=== PATIENT | female | born 1980 | race African-American/Black ===

== ENCOUNTER 2019-03-28 13:25 | Emergency (ER) | payer SELFPAY ==
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
[2019-03-28 14:47] LABS: CHLORIDE,CL 106 mmol/L (98-107); SODIUM,NA 141 mmol/L (136-145)
--- NOTE | 2019-03-28 15:01 | US ---
INDICATION: . Abdominal injury. FINDINGS: A transabdominal pelvic ultrasound was performed. Patient refused endovaginal exam. Two uterine fibroids with the largest located in the right side of the fundus uterus 6.2 x 5.4 x 5.4 cm. Normal thickness of the endometrial stripe measuring 1.0 cm. No fluid collections in the uterine cavity. Normal appearance of the ovaries with the right ovary measuring 2.3 x 2.3 x 1.4 cm and the left ovary measuring 3.0 x 2.4 x 2.4 cm. Color and spectral Doppler analysis shows normal arterial and venous blood flow to both ovaries. Impression : 1. No intra or extrauterine identified. An ectopic cannot be excluded based on this study. Recommend continued close interval sonographic and laboratory follow-up. Dictated by Abner Zheng MD @ Mar 28 2019 2:47PM Signed by Dr. Abner Zheng @ Mar 28 2019 3:00PM
== END 2019-03-28 15:05 | disposition home or self-care (01) ==
LOC: MW.ED 13:25
DX: S39.91XA Unspecified injury of abdomen, initial encounter (principal); W51.XXXA Accidental striking against or bumped into by another person, initial encounter
CPT/HCPCS: 36415; 76801; 76801-26; 80053; 84702; 85025; 86900; 86901; 99283; 99284-25

== ENCOUNTER 2019-10-15 14:53 | Observation (INO) | payer OTHER ==
--- NOTE | 2019-10-15 15:26 | EDM.PDOC ---
ED HPI GENERAL MEDICAL PROBLEM - General Chief Complaint: Back Pain or Injury Stated Complaint: LOWER ABDOMINAL AND BACK PAIN Time Seen by Provider: 10/15/19 15:25 Source of Information: Reports: Patient History Limitations: Reports: No Limitations - History of Present Illness INITIAL COMMENTS - FREE TEXT/NARRATIVE: Patient is a 38-year-old female is complaining of having left lower quadrant pain which started approximately 3 days ago and got much more severe. Patient states pain is worse with movement but not changed with eating. Patient is feeling nauseous but has had no vomiting. She denies any dysuria or hematuria. Patient has no history of endometriosis or ovarian cyst. She does have a history of uterine fibroids. She denies any bloody or tarry looking stools. Last menstrual period was normal and she has had no vaginal discharge. Patient has had her gallbladder out. Duration: Day(s): (three), Getting Worse Location: Reports: Abdomen, Pelvis Quality: Reports: Ache, Sharp Severity: Severe Improves with: Reports: None Worsens with: Reports: Movement Associated Symptoms: Reports: No Other Symptoms Left Lower Back Pain Score (Numeric/FACES): 7 - Related Data Allergies Allergy/AdvReac Type Severity Reaction Status Date / Time No Known Allergies Allergy Verified 10/15/19 15:10 Home Meds: Home Meds . 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 ED EXAM,LOWER BACK PAIN/INJURY - Physical Exam Exam: See Below Exam Limited By: Language Barrier General Appearance: Moderate Distress Head: Atraumatic Neck: Normal Inspection Respiratory/Chest: No Respiratory Distress, Lungs Clear, Normal Breath Sounds, Chest Non-Tender Cardiovascular: Regular Rate, Rhythm, No JVD GI/Abdominal: Normal Bowel Sounds, Rebound, Tender. No: No Mass, Guarding, Rigid Back Exam: Normal Inspection. No: CVA Tenderness (L), CVA Tenderness (R) Extremities: Normal Inspection Neurological: Alert, Normal Mood/Affect Psychiatric: Normal Affect Skin Exam: Warm, Dry, Normal Color Lymphatic: No Adenopathy Course - Vital Signs Text/Narrative:: Patient's lab work was within normal limits. Her CT scan showed no acute inflammatory process in her abdomen or pelvis. She continues to have severe pelvic and right lower quadrant area pain I believe this is secondary to her having uterine fibroid disease. Pain seems intractable at this time. She is given several doses of narcotic pain medicine with only mild relief. I have discussed her with the hospitalist and she will be admitted at this time and I am expecting they will get a group captain involved for further evaluation and work-up. Possible ultrasound or MRI scan may be pending. Last Recorded V/S: Last Vital Signs Temp 36.2 C 10/15/19 15:07 Pulse 82 10/15/19 15:07 Resp 18 10/15/19 15:07 BP 108/72 10/15/19 15:07 Pulse Ox 99 10/15/19 15:07 - Orders/Labs/Meds Labs: Laboratory Tests 10/15/19 10/15/19 10/15/19 Range/Units 15:40 15:40 16:30 WBC 5.78 (4.0-11.0) K/uL RBC 4.62 (4.30-5.90) M/uL Hgb 12.8 (12.0-16.0) g/dL Hct 37.4 (36.0-46.0) % MCV 81.0 (80.0-98.0) fL MCH 27.7 (27.0-32.0) pg MCHC 34.2 (31.0-37.0) g/dL RDW Std Deviation 39.3 (28.0-62.0) fl RDW Coeff of Naresh 13 (11.0-15.0) % Plt Count 232 (150-400) K/uL MPV 10.60 (7.40-12.00) fL Neut % (Auto) 43.4 L (48.0-80.0) % Lymph % (Auto) 44.8 H (16.0-40.0) % [place] % (Auto) 9.7 (0.0-15.0) % Eos % (Auto) 1.4 (0.0-7.0) % Baso % (Auto) 0.7 (0.0-1.5) % Neut # (Auto) 2.5 (1.4-5.7) K/uL Lymph # (Auto) 2.6 H (0.6-2.4) K/uL [place] # (Auto) 0.6 (0.0-0.8) K/uL Eos # (Auto) 0.1 (0.0-0.7) K/uL Baso # (Auto) 0.0 (0.0-0.1) K/uL Nucleated RBC % 0.0 /100WBC Nucleated RBCs # 0 K/uL Lactate 0.9 (0.20-2.00) mmol/L Urine Color YELLOW Urine Appearance CLEAR Urine pH 7.5 (5.0-8.0) Ur Specific [place] 1.015 (1.001-1.035) Urine Protein NEGATIVE (NEGATIVE) mg/dL Urine Glucose (UA) NEGATIVE (NEGATIVE) mg/dL Urine Ketones NEGATIVE (NEGATIVE) mg/dL Urine Occult Blood NEGATIVE (NEGATIVE) Urine Nitrite NEGATIVE (NEGATIVE) Urine Bilirubin NEGATIVE (NEGATIVE) Urine Urobilinogen 0.2 (<2.0) EU/dL Ur Leukocyte Esterase SMALL H (NEGATIVE) Urine RBC 0-2 (0-2/HPF) Urine WBC 2-3 (0-5/HPF) Ur Epithelial Cells FEW (NONE-FEW) Amorphous Sediment FEW (NEGATIVE) Urine Bacteria FEW (NEGATIVE) Urine Mucus FEW (NONE-MOD) Urine HCG, Qual (NEGATIVE) 10/15/19 Range/Units 16:30 WBC (4.0-11.0) K/uL RBC (4.30-5.90) M/uL Hgb (12.0-16.0) g/dL Hct (36.0-46.0) % MCV (80.0-98.0) fL MCH (27.0-32.0) pg MCHC (31.0-37.0) g/dL RDW Std Deviation (28.0-62.0) fl RDW Coeff of Naresh (11.0-15.0) % Plt Count (150-400) K/uL MPV (7.40-12.00) fL Neut % (Auto) (48.0-80.0) % Lymph % (Auto) (16.0-40.0) % [place] % (Auto) (0.0-15.0) % Eos % (Auto) (0.0-7.0) % Baso % (Auto) (0.0-1.5) % Neut # (Auto) (1.4-5.7) K/uL Lymph # (Auto) (0.6-2.4) K/uL [place] # (Auto) (0.0-0.8) K/uL Eos # (Auto) (0.0-0.7) K/uL Baso # (Auto) (0.0-0.1) K/uL Nucleated RBC % /100WBC Nucleated RBCs # K/uL Lactate (0.20-2.00) mmol/L Urine Color Urine Appearance Urine pH (5.0-8.0) Ur Specific [place] (1.001-1.035) Urine Protein (NEGATIVE) mg/dL Urine Glucose (UA) (NEGATIVE) mg/dL Urine Ketones (NEGATIVE) mg/dL Urine Occult Blood (NEGATIVE) Urine Nitrite (NEGATIVE) Urine Bilirubin (NEGATIVE) Urine Urobilinogen (<2.0) EU/dL Ur Leukocyte Esterase (NEGATIVE) Urine RBC (0-2/HPF) Urine WBC (0-5/HPF) Ur Epithelial Cells (NONE-FEW) Amorphous Sediment (NEGATIVE) Urine Bacteria (NEGATIVE) Urine Mucus (NONE-MOD) Urine HCG, Qual NEGATIVE (NEGATIVE) Meds: Medications Discontinued Medications Generic Name Dose Route Start Last Admin Trade Name Freq PRN Reason Stop Dose Admin Sodium Chloride 1,000 mls @ 999 mls/hr 10/15/19 15:35 10/15/19 16:06 Normal Saline IV 10/15/19 16:35 999 mls/hr .BOLUS ONE Administration Ibuprofen 600 mg 10/15/19 18:16 10/15/19 18:53 Motrin PO 10/15/19 18:17 600 mg ONETIME ONE Administration Morphine Sulfate 2 mg 10/15/19 15:39 10/15/19 16:03 Morphine IVPUSH 10/15/19 15:40 2 mg ONETIME ONE Administration Ondansetron HCl 4 mg 10/15/19 15:37 10/15/19 16:03 Zofran IVPUSH 10/15/19 15:38 4 mg ONETIME ONE Administration Oxycodone/Acetaminophen 1 tab 10/15/19 18:16 10/15/19 18:53 Percocet 325-5 Mg PO 10/15/19 18:17 1 tab ONETIME ONE Administration Departure - Departure Time of Disposition: 19:11 Disposition: Refer to Observation Condition: Fair Clinical Impression: Pelvic pain, Intractable abdominal pain - Discharge Information Referrals: Dayami Acevedo MD [Primary Care Provider] - Forms: ED Department Discharge Sepsis Event Note - Evaluation Sepsis Screening Result: No Definite Risk - Focused Exam Vital Signs: Vital Signs Temp Pulse Resp BP Pulse Ox 10/15/19 15:07 36.2 C 82 18 108/72 99 Date Exam was Performed: 10/15/19 Time Exam was Performed: 19:02
[2019-10-15] MEDS ORDERED: Sodium Chloride 0.9% 1,000 ML IV ONE (15:35)
[2019-10-15] MEDS ORDERED: Ondansetron 4 MG/2 ML SDV IVPUSH ONE (15:37)
[2019-10-15] MEDS ORDERED: Morphine 2 MG/ML Syringe IVPUSH ONE (15:39)
--- NOTE | 2019-10-15 17:55 | CT ---
CT abdomen and pelvis Technique: Multiple axial sections were obtained from above the dome of the diaphragm inferiorly through the pubic symphysis. Intravenous and oral contrast not utilized. Lack of contrast diminishes solid organ and bowel evaluation. Findings: Unusual reticulonodular appearance is seen within the subcutaneous fat within both buttocks. Uncertain as to these the etiology of this finding. Other portions of the subcutaneous fat within the abdomen appears normal. Small calcified granuloma is seen within the right lung base. Noncontrast appearance of the liver shows no discrete abnormality. Spleen appears normal in size. Kidneys show no abnormal calcifications or hydronephrosis. Surgical clips are seen within the upper right abdomen. Adrenal glands show no nodule. Pancreas is within normal limits. Aorta shows no aneurysm. No retroperitoneal adenopathy is appreciated. Appendix cannot be visualized. Uterus is generous in size most likely representing fibroid change. No additional pelvic abnormality is definitely appreciated. No inflammatory change is appreciated within the abdomen or pelvis. Bone window settings were reviewed which shows no acute osseous finding. Impression: 1. Unusual reticulonodular appearance within the subcutaneous fat within both buttocks. These findings are nonspecific regarding etiology. Other portions of the subcutaneous fat within the abdomen appear normal. 2. Other findings which are felt to be incidental. Nothing acute is definitely appreciated on this exam. Diagnostic code #2 This report was dictated in [place] Standard Time
[2019-10-15] MEDS ORDERED: Acetaminophen/oxyCODONE 325-5 MG Tab PO ONE (18:16)
[2019-10-15] MEDS ORDERED: Ibuprofen 600 MG Tab PO ONE (18:16)
[2019-10-15] MEDS ORDERED: Ketorolac 30 MG/ML SDV IV PRN (20:02)
[2019-10-15] MEDS ORDERED: Ondansetron 4 MG/2 ML SDV IVPUSH PRN (20:02)
[2019-10-15] MEDS ORDERED: Morphine 10 MG/ML Syringe IVPUSH PRN (20:02)
[2019-10-15] MEDS ORDERED: Acetaminophen 325 MG Tab PO PRN (20:02)
[2019-10-15] MEDS ORDERED: Ondansetron 4 MG Tab.DIS PO PRN (20:02)
[2019-10-15] MEDS ORDERED: Enoxaparin 40 MG/0.4 ML Syringe SUBCUT SCH (20:15)
--- NOTE | 2019-10-15 22:21 | PCM.HP.2 ---
H&P History of Present Illness - General Date of Service: 10/15/19 Admit Problem/Dx: Admission Diagnosis/Problem Admission Diagnosis/Problem Abdominal pain in female Source of Information: Patient - History of Present Illness Initial Comments - Free Text/Narative: Patient is a 38-year-old female with PMH of uterine fibroids, cholecystectomy came in with c/o having left lower quadrant pain which started approximately 3 days ago and has gotten worse since yesterday .Patient also endorses nausea, She denies any dysuria or hematuria, bloody stools, diarrhea, or vagimal bleeding . Patient has no history of endometriosis or ovarian cyst. She does have a history of uterine fibroids and has seen her OBGYN in recent past. She is actively trying to get . She denies any bloody or tarry looking stools. Last menstrual period was normal and she has had no vaginal discharge. In the ER CT scan of abdomen was obtained which showed no acute findings. Lab work was unremarkable. Patient was admitted for intractable abdominal pain. Onset of Symptoms: Reports: Gradual Duration of Symptoms: Reports: Day(s): Quality: Reports: Ache, Pressure, Throbbing Improves with: Reports: Heat Therapy, Medication Associated Symptoms: Reports: Nausea/Vomiting Left Lower Back Pain Score (Numeric/FACES): 7 - Related Data Allergies/Adverse Reactions: Allergies Allergy/AdvReac Type Severity Reaction Status Date / Time No Known Allergies Allergy Verified 10/16/19 02:55 Home Medications: Home Meds Ibuprofen [Motrin] 600 mg PO Q6H PRN #30 tablet 10/16/19 [Rx] Omeprazole 20 mg PO DAILY 30 Days #30 tablet. 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: - Infectious Disease History Infectious Disease History: Reports: None Social & Family History - Family History Family Medical History: Noncontributory - Tobacco Use Smoking Status *Q: Never Smoker Second Hand Smoke Exposure: No - Caffeine Use Caffeine Use: Reports: None - Recreational Drug Use Recreational Drug Use: No H&P Review of Systems - Review of Systems: Review Of Systems: See Below General: Denies: Fever, Chills Pulmonary: Denies: Shortness of Breath, Wheezing Cardiovascular: Denies: Chest Pain, Palpitations, Dyspnea on Exertion Gastrointestinal: Reports: Abdominal Pain, Decreased Appetite, Nausea. Denies: Anorexia, Black Stool, Bloody Stool, Constipation, Diarrhea, Flatus, Hematemesis , Hematochezia, Mucous in Stool Genitourinary: Denies: Dysuria, Frequency, Burning Musculoskeletal: Denies: Neck Pain, Shoulder Pain, Arm Pain Skin: Denies: Cyanosis, Jaundice, Mottled, Pallor Psychiatric: Denies: Confusion, Depression, Mood Lability Exam - Exam Exam: See Below - Vital Signs Vital Signs: Last Vital Signs Temp 36.6 C 10/15/19 19:56 Pulse 76 10/15/19 19:56 Resp 18 10/15/19 19:56 BP 95/66 10/15/19 19:56 Pulse Ox 99 10/15/19 19:56 Weight: 77.111 kg - Exam General: Alert, Oriented Neck: Supple, Trachea Midline Lungs: Clear to Auscultation, Normal Respiratory Effort Cardiovascular: Regular Rate, Regular Rhythm, Normal S1, Normal S2 GI/Abdominal Exam: Normal Bowel Sounds, Soft, Tender - Patient Data Lab Results Last 24 hrs: Laboratory Results - last 24 hr 10/15/19 10/15/19 10/15/19 Range/Units 15:40 15:40 16:30 WBC 5.78 (4.0-11.0) K/uL RBC 4.62 (4.30-5.90) M/uL Hgb 12.8 (12.0-16.0) g/dL Hct 37.4 (36.0-46.0) % MCV 81.0 (80.0-98.0) fL MCH 27.7 (27.0-32.0) pg MCHC 34.2 (31.0-37.0) g/dL RDW Std Deviation 39.3 (28.0-62.0) fl RDW Coeff of Naresh 13 (11.0-15.0) % Plt Count 232 (150-400) K/uL MPV 10.60 (7.40-12.00) fL Neut % (Auto) 43.4 L (48.0-80.0) % Lymph % (Auto) 44.8 H (16.0-40.0) % [place] % (Auto) 9.7 (0.0-15.0) % Eos % (Auto) 1.4 (0.0-7.0) % Baso % (Auto) 0.7 (0.0-1.5) % Neut # (Auto) 2.5 (1.4-5.7) K/uL Lymph # (Auto) 2.6 H (0.6-2.4) K/uL [place] # (Auto) 0.6 (0.0-0.8) K/uL Eos # (Auto) 0.1 (0.0-0.7) K/uL Baso # (Auto) 0.0 (0.0-0.1) K/uL Nucleated RBC % 0.0 /100WBC Nucleated RBCs # 0 K/uL Lactate 0.9 (0.20-2.00) mmol/L Urine Color YELLOW Urine Appearance CLEAR Urine pH 7.5 (5.0-8.0) Ur Specific [place] 1.015 (1.001-1.035) Urine Protein NEGATIVE (NEGATIVE) mg/dL Urine Glucose (UA) NEGATIVE (NEGATIVE) mg/dL Urine Ketones NEGATIVE (NEGATIVE) mg/dL Urine Occult Blood NEGATIVE (NEGATIVE) Urine Nitrite NEGATIVE (NEGATIVE) Urine Bilirubin NEGATIVE (NEGATIVE) Urine Urobilinogen 0.2 (<2.0) EU/dL Ur Leukocyte Esterase SMALL H (NEGATIVE) Urine RBC 0-2 (0-2/HPF) Urine WBC 2-3 (0-5/HPF) Ur Epithelial Cells FEW (NONE-FEW) Amorphous Sediment FEW (NEGATIVE) Urine Bacteria FEW (NEGATIVE) Urine Mucus FEW (NONE-MOD) Urine HCG, Qual (NEGATIVE) 10/15/19 Range/Units 16:30 WBC (4.0-11.0) K/uL RBC (4.30-5.90) M/uL Hgb (12.0-16.0) g/dL Hct (36.0-46.0) % MCV (80.0-98.0) fL MCH (27.0-32.0) pg MCHC (31.0-37.0) g/dL RDW Std Deviation (28.0-62.0) fl RDW Coeff of Naresh (11.0-15.0) % Plt Count (150-400) K/uL MPV (7.40-12.00) fL Neut % (Auto) (48.0-80.0) % Lymph % (Auto) (16.0-40.0) % [place] % (Auto) (0.0-15.0) % Eos % (Auto) (0.0-7.0) % Baso % (Auto) (0.0-1.5) % Neut # (Auto) (1.4-5.7) K/uL Lymph # (Auto) (0.6-2.4) K/uL [place] # (Auto) (0.0-0.8) K/uL Eos # (Auto) (0.0-0.7) K/uL Baso # (Auto) (0.0-0.1) K/uL Nucleated RBC % /100WBC Nucleated RBCs # K/uL Lactate (0.20-2.00) mmol/L Urine Color Urine Appearance Urine pH (5.0-8.0) Ur Specific [place] (1.001-1.035) Urine Protein (NEGATIVE) mg/dL Urine Glucose (UA) (NEGATIVE) mg/dL Urine Ketones (NEGATIVE) mg/dL Urine Occult Blood (NEGATIVE) Urine Nitrite (NEGATIVE) Urine Bilirubin (NEGATIVE) Urine Urobilinogen (<2.0) EU/dL Ur Leukocyte Esterase (NEGATIVE) Urine RBC (0-2/HPF) Urine WBC (0-5/HPF) Ur Epithelial Cells (NONE-FEW) Amorphous Sediment (NEGATIVE) Urine Bacteria (NEGATIVE) Urine Mucus (NONE-MOD) Urine HCG, Qual NEGATIVE (NEGATIVE) Result Diagrams: 10/16/19 05:15 10/16/19 08:05 Sepsis Event Note - Evaluation Sepsis Screening Result: No Definite Risk - Focused Exam Vital Signs: Vital Signs Temp Pulse Resp BP Pulse Ox 10/15/19 19:56 36.6 C 76 18 95/66 99 10/15/19 15:07 36.2 C 82 18 108/72 99 Date Exam was Performed: 10/23/19 Time Exam was Performed: 12:31 - Problem List (1) Intractable abdominal pain SNOMED Code(s): 71970001 ICD Code: R10.9 - UNSPECIFIED ABDOMINAL PAIN Status: Acute Problem List Initiated/Reviewed/Updated: Yes Orders Last 24hrs: Active Orders 24 hr Category Date Time Status Admission Status [Patient Status] [ADT] Stat ADT 10/15/19 19:13 Active Intake and Output [RC] QSHIFT Care 10/15/19 20:02 Active Oxygen Therapy [RC] PRN Care 10/15/19 20:02 Active Up ad Yolanda [RC] ASDIRECTED Care 10/15/19 20:02 Active VTE/DVT Education [RC] PER UNIT ROUTINE Care 10/15/19 20:02 Active Vital Signs [RC] Q4H Care 10/15/19 20:02 Active Regular Diet [DIET] Diet 10/15/19 Dinner Active Acetaminophen [Tylenol] Med 10/15/19 20:02 Active 650 mg PO Q4H PRN Enoxaparin [Lovenox] Med 10/15/19 20:15 Active 40 mg SUBCUT Q24H Ibuprofen [Motrin] Med 10/15/19 20:02 Active 800 mg PO Q6H PRN Ketorolac [Toradol] Med 10/15/19 20:02 Active 30 mg IV Q6H PRN Morphine Med 10/15/19 20:02 Active 2 mg IVPUSH Q2H PRN Ondansetron [Zofran ODT] Med 10/15/19 20:02 Active 4 mg PO Q4H PRN Ondansetron [Zofran] Med 10/15/19 20:02 Active 4 mg IVPUSH Q4H PRN Resuscitation Status Routine Resus Stat 10/15/19 20:02 Ordered Medication Orders Acetaminophen (Tylenol) 650 mg PO Q4H PRN PRN Reason: Pain (Mild 1-3)/fever Enoxaparin Sodium (Lovenox) 40 mg SUBCUT Q24H SARA Last Admin: 10/15/19 21:13 Dose: 40 mg Ibuprofen (Motrin) 800 mg PO Q6H PRN PRN Reason: Pain (mild 1-3) Ketorolac Tromethamine (Toradol) 30 mg IV Q6H PRN PRN Reason: Pain (moderate 4-6) Morphine Sulfate (Morphine) 2 mg IVPUSH Q2H PRN PRN Reason: Pain (severe 7-10) Stop: 10/16/19 20:03 Ondansetron HCl (Zofran) 4 mg IVPUSH Q4H PRN PRN Reason: Nausea Ondansetron HCl (Zofran Odt) 4 mg PO Q4H PRN PRN Reason: nausea, able to take PO Assessment/Plan Comment:: 38 y/o admitted for abdominal pain CT scan unremarkable for any acute process Abdominal pain slight improved currently, Will continue pain control with morphine and Toradol IV Currently has no appetite, will start clear diet and advance as tolerated Cont IV fluids for now Will obtain USG uterus Will touch base will OBGYN venancio
[2019-10-16] MEDS: Ibuprofen 800 MG Tab PO PRN ×2 (02:42→12:50)
[2019-10-16 08:20] LABS: BLOOD UREA NITROGEN,BUN 7 mg/dL (7.0-18.0); CARBON DIOXIDE,CO2 24.9 mmol/L (21.0-32.0); CHLORIDE,CL 107 mmol/L (98-107); GLUCOSE RANDOM 81 mg/dL (74-106); POTASSIUM,K 3.4 mmol/L (3.5-5.1); SODIUM,NA 141 mmol/L (136-145)
--- NOTE | 2019-10-16 09:17 | PCM.DCSUM1 ---
<Tim Levine - Last Filed: 10/16/19 15:46> Discharge Summary - Hospital Course Free Text/Narrative:: 38 y/o female with history of fibroids presenting to ER complaining of worsening abdominal pain. Patient states that she finished her period about 1 week ago. Labs unremarkable. No leukocytosis, fevers. CT abdomen/pelvis was negative for any acute abdomen. It did show large fibroid but no other etiology for her pain. She was admitted for pain control. Patient's pain improved significantly overnight. She took Motrin and that seemed to alleviate the pain. She was discharged home on Motrin, omeprazole. Follow-up with her [employer] was schedule as outpatient. - Discharge Data Discharge Date: 10/16/19 Discharge Disposition: Home, Self-Care 01 Condition: Good - Referral to Home Health Primary Care Physician: PCP None - Patient Instructions Diet: Regular Diet as Tolerated Activity: As Tolerated Notify Provider of: Fever, Increased Pain, Swelling and Redness, Nausea and/or Vomiting - Discharge Plan Prescriptions/Med Rec: Ibuprofen [Motrin] 600 mg PO Q6H PRN #30 tablet PRN Reason: Pain (Mild 1-3) Omeprazole 20 mg PO DAILY 30 Days #30 tablet. Home Medications: Home Meds Ibuprofen [Motrin] 600 mg PO Q6H PRN #30 tablet 10/16/19 [Rx] Omeprazole 20 mg PO DAILY 30 Days #30 tablet. 10/16/19 [Rx] Patient Handouts: Omeprazole; Sodium Bicarbonate oral capsule, Pelvic Pain, Female, [id number], Ibuprofen tablets and capsules Referrals: Dayami Acevedo MD [Physician] - 11/04/19 3:30 pm - Discharge Summary/Plan Comment DC Time >30 min.: No - Patient Data Vitals - Most Recent: Last Vital Signs Temp 36.8 C 10/16/19 08:00 Pulse 64 10/16/19 08:00 Resp 16 10/16/19 08:00 BP 98/61 10/16/19 08:00 Pulse Ox 97 10/16/19 08:00 Weight - Most Recent: 77.111 kg I&O - Last 24 hours: Intake & Output 10/15/19 10/16/19 10/16/19 22:59 06:59 14:59 Intake Total 340 120 Balance 340 120 Lab Results - Last 24 hrs: Laboratory Results - last 24 hr 10/15/19 10/15/19 10/15/19 Range/Units 15:40 15:40 16:30 WBC 5.78 (4.0-11.0) K/uL RBC 4.62 (4.30-5.90) M/uL Hgb 12.8 (12.0-16.0) g/dL Hct 37.4 (36.0-46.0) % MCV 81.0 (80.0-98.0) fL MCH 27.7 (27.0-32.0) pg MCHC 34.2 (31.0-37.0) g/dL RDW Std Deviation 39.3 (28.0-62.0) fl RDW Coeff of Naresh 13 (11.0-15.0) % Plt Count 232 (150-400) K/uL MPV 10.60 (7.40-12.00) fL Neut % (Auto) 43.4 L (48.0-80.0) % Lymph % (Auto) 44.8 H (16.0-40.0) % [place] % (Auto) 9.7 (0.0-15.0) % Eos % (Auto) 1.4 (0.0-7.0) % Baso % (Auto) 0.7 (0.0-1.5) % Neut # (Auto) 2.5 (1.4-5.7) K/uL Lymph # (Auto) 2.6 H (0.6-2.4) K/uL [place] # (Auto) 0.6 (0.0-0.8) K/uL Eos # (Auto) 0.1 (0.0-0.7) K/uL Baso # (Auto) 0.0 (0.0-0.1) K/uL Nucleated RBC % 0.0 /100WBC Nucleated RBCs # 0 K/uL Lactate 0.9 (0.20-2.00) mmol/L Sodium (136-145) mmol/L Potassium (3.5-5.1) mmol/L Chloride (98-107) mmol/L Carbon Dioxide (21.0-32.0) mmol/L BUN (7.0-18.0) mg/dL Creatinine (0.6-1.0) mg/dL Est Cr Clr Drug Dosing mL/min Estimated GFR (MDRD) ml/min Glucose (74-106) mg/dL Calcium (8.5-10.1) mg/dL Total Bilirubin (0.2-1.0) mg/dL AST (15-37) IU/L ALT (14-63) IU/L Alkaline Phosphatase (46-116) U/L Total Protein (6.4-8.2) g/dL Albumin (3.4-5.0) g/dL Globulin (2.6-4.0) g/dL Albumin/Globulin Ratio (0.9-1.6) Urine Color YELLOW Urine Appearance CLEAR Urine pH 7.5 (5.0-8.0) Ur Specific [place] 1.015 (1.001-1.035) Urine Protein NEGATIVE (NEGATIVE) mg/dL Urine Glucose (UA) NEGATIVE (NEGATIVE) mg/dL Urine Ketones NEGATIVE (NEGATIVE) mg/dL Urine Occult Blood NEGATIVE (NEGATIVE) Urine Nitrite NEGATIVE (NEGATIVE) Urine Bilirubin NEGATIVE (NEGATIVE) Urine Urobilinogen 0.2 (<2.0) EU/dL Ur Leukocyte Esterase SMALL H (NEGATIVE) Urine RBC 0-2 (0-2/HPF) Urine WBC 2-3 (0-5/HPF) Ur Epithelial Cells FEW (NONE-FEW) Amorphous Sediment FEW (NEGATIVE) Urine Bacteria FEW (NEGATIVE) Urine Mucus FEW (NONE-MOD) Urine HCG, Qual (NEGATIVE) 10/15/19 10/16/19 10/16/19 Range/Units 16:30 05:15 08:05 WBC 5.18 (4.0-11.0) K/uL RBC 4.14 L (4.30-5.90) M/uL Hgb 11.2 L (12.0-16.0) g/dL Hct 33.5 L (36.0-46.0) % MCV 80.9 (80.0-98.0) fL MCH 27.1 (27.0-32.0) pg MCHC 33.4 (31.0-37.0) g/dL RDW Std Deviation 39.6 (28.0-62.0) fl RDW Coeff of Naresh 13 (11.0-15.0) % Plt Count 220 (150-400) K/uL MPV 10.80 (7.40-12.00) fL Neut % (Auto) 27.8 L (48.0-80.0) % Lymph % (Auto) 59.8 H (16.0-40.0) % [place] % (Auto) 9.7 (0.0-15.0) % Eos % (Auto) 1.5 (0.0-7.0) % Baso % (Auto) 1.2 (0.0-1.5) % Neut # (Auto) 1.4 (1.4-5.7) K/uL Lymph # (Auto) 3.1 H (0.6-2.4) K/uL [place] # (Auto) 0.5 (0.0-0.8) K/uL Eos # (Auto) 0.1 (0.0-0.7) K/uL Baso # (Auto) 0.1 (0.0-0.1) K/uL Nucleated RBC % 0.0 /100WBC Nucleated RBCs # 0 K/uL Lactate (0.20-2.00) mmol/L Sodium 141 (136-145) mmol/L Potassium 3.4 L (3.5-5.1) mmol/L Chloride 107 (98-107) mmol/L Carbon Dioxide 24.9 (21.0-32.0) mmol/L BUN 7 (7.0-18.0) mg/dL Creatinine 0.6 (0.6-1.0) mg/dL Est Cr Clr Drug Dosing 119.01 mL/min Estimated GFR (MDRD) > 60.0 ml/min Glucose 81 (74-106) mg/dL Calcium 8.6 (8.5-10.1) mg/dL Total Bilirubin 0.4 (0.2-1.0) mg/dL AST 22 (15-37) IU/L ALT 25 (14-63) IU/L Alkaline Phosphatase 54 (46-116) U/L Total Protein 6.0 L (6.4-8.2) g/dL Albumin 3.0 L (3.4-5.0) g/dL Globulin 3.0 (2.6-4.0) g/dL Albumin/Globulin Ratio 1.0 (0.9-1.6) Urine Color Urine Appearance Urine pH (5.0-8.0) Ur Specific [place] (1.001-1.035) Urine Protein (NEGATIVE) mg/dL Urine Glucose (UA) (NEGATIVE) mg/dL Urine Ketones (NEGATIVE) mg/dL Urine Occult Blood (NEGATIVE) Urine Nitrite (NEGATIVE) Urine Bilirubin (NEGATIVE) Urine Urobilinogen (<2.0) EU/dL Ur Leukocyte Esterase (NEGATIVE) Urine RBC (0-2/HPF) Urine WBC (0-5/HPF) Ur Epithelial Cells (NONE-FEW) Amorphous Sediment (NEGATIVE) Urine Bacteria (NEGATIVE) Urine Mucus (NONE-MOD) Urine HCG, Qual NEGATIVE (NEGATIVE) Med Orders - Current: Current Medications Acetaminophen (Tylenol) 650 mg PO Q4H PRN PRN Reason: Pain (Mild 1-3)/fever Enoxaparin Sodium (Lovenox) 40 mg SUBCUT Q24H SARA Last Admin: 10/15/19 21:13 Dose: 40 mg Ibuprofen (Motrin) 800 mg PO Q6H PRN PRN Reason: Pain (mild 1-3) Last Admin: 10/16/19 02:42 Dose: 800 mg Ketorolac Tromethamine (Toradol) 30 mg IV Q6H PRN PRN Reason: Pain (moderate 4-6) Morphine Sulfate (Morphine) 2 mg IVPUSH Q2H PRN PRN Reason: Pain (severe 7-10) Stop: 10/16/19 20:03 Ondansetron HCl (Zofran) 4 mg IVPUSH Q4H PRN PRN Reason: Nausea Ondansetron HCl (Zofran Odt) 4 mg PO Q4H PRN PRN Reason: nausea, able to take PO Discontinued Medications Sodium Chloride (Normal Saline) 1,000 mls @ 999 mls/hr IV .BOLUS ONE Stop: 10/15/19 16:35 Last Admin: 10/15/19 16:06 Dose: 999 mls/hr Ibuprofen (Motrin) 600 mg PO ONETIME ONE Stop: 10/15/19 18:17 Last Admin: 10/15/19 18:53 Dose: 600 mg Morphine Sulfate (Morphine) 2 mg IVPUSH ONETIME ONE Stop: 10/15/19 15:40 Last Admin: 10/15/19 16:03 Dose: 2 mg Ondansetron HCl (Zofran) 4 mg IVPUSH ONETIME ONE Stop: 02/13/20 15:38 Last Admin: 10/15/19 16:03 Dose: 4 mg Oxycodone/Acetaminophen (Percocet 325-5 Mg) 1 tab PO ONETIME ONE Stop: 10/15/19 18:17 Last Admin: 10/15/19 18:53 Dose: 1 tab <Alivia Brooks - Last Filed: 10/23/19 12:31> Discharge Summary - Hospital Course Free Text/Narrative:: I have seen and evaluated the patient and agree with the residents note unless specified in my note - Referral to Home Health Primary Care Physician: PCP None - Discharge Diagnosis/Problem(s) (1) Intractable abdominal pain SNOMED Code(s): 69216134 ICD Code: R10.9 - UNSPECIFIED ABDOMINAL PAIN Status: Acute - Patient Data Vitals - Most Recent: Last Vital Signs Temp 36.4 C 10/16/19 12:10 Pulse 75 10/16/19 12:10 Resp 18 10/16/19 12:10 BP 103/55 L 10/16/19 12:10 Pulse Ox 99 10/16/19 12:10 Med Orders - Current: Current Medications Discontinued Medications Acetaminophen (Tylenol) 650 mg PO Q4H PRN PRN Reason: Pain (Mild 1-3)/fever Enoxaparin Sodium (Lovenox) 40 mg SUBCUT Q24H SARA Last Admin: 10/15/19 21:13 Dose: 40 mg Sodium Chloride (Normal Saline) 1,000 mls @ 999 mls/hr IV .BOLUS ONE Stop: 10/15/19 16:35 Last Admin: 10/15/19 16:06 Dose: 999 mls/hr Ibuprofen (Motrin) 600 mg PO ONETIME ONE Stop: 10/15/19 18:17 Last Admin: 10/15/19 18:53 Dose: 600 mg Ibuprofen (Motrin) 800 mg PO Q6H PRN PRN Reason: Pain (mild 1-3) Last Admin: 10/16/19 12:50 Dose: 800 mg Ketorolac Tromethamine (Toradol) 30 mg IV Q6H PRN PRN Reason: Pain (moderate 4-6) Morphine Sulfate (Morphine) 2 mg IVPUSH ONETIME ONE Stop: 10/15/19 15:40 Last Admin: 10/15/19 16:03 Dose: 2 mg Morphine Sulfate (Morphine) 2 mg IVPUSH Q2H PRN PRN Reason: Pain (severe 7-10) Stop: 10/16/19 20:03 Ondansetron HCl (Zofran) 4 mg IVPUSH ONETIME ONE Stop: 10/15/19 15:38 Last Admin: 10/15/19 16:03 Dose: 4 mg Ondansetron HCl (Zofran) 4 mg IVPUSH Q4H PRN PRN Reason: Nausea Ondansetron HCl (Zofran Odt) 4 mg PO Q4H PRN PRN Reason: nausea, able to take PO Oxycodone/Acetaminophen (Percocet 325-5 Mg) 1 tab PO ONETIME ONE Stop: 10/15/19 18:17 Last Admin: 10/15/19 18:53 Dose: 1 tab Potassium Chloride (Klor-Con M20) 40 meq PO ONETIME ONE Stop: 10/16/19 09:19 Last Admin: 10/16/19 09:41 Dose: 40 meq
[2019-10-16] MEDS ORDERED: Potassium Chloride 20 MEQ Tab.ER PO ONE (09:18)
== END 2019-10-16 14:30 | disposition home or self-care (01) ==
LOC: MW.ED 14:53 → MW.MS 19:13
PROVIDERS: ADMIT Student in an Organized Health Care Education/Training Program; ATTEND Student in an Organized Health Care Education/Training Program
DX: R10.32 Left lower quadrant pain (principal); D25.9 Leiomyoma of uterus, unspecified; Z87.42 Personal history of other diseases of the female genital tract; Z90.49 Acquired absence of other specified parts of digestive tract; Z79.899 Other long term (current) drug therapy
CPT/HCPCS: 36415; 74176; 80053; 81001; 81025; 83605; 85025; 96361; 96372; 96374; 96375; 99285; A9270; G0378; J1650; J2270; J2405; J7030; 99284

== ENCOUNTER 2020-01-19 06:37 | Observation (INO) | payer OTHER ==
[2020-01-19] MEDS ORDERED: Midazolam 1 MG/ML 2 ML SDV ONE (06:53)
[2020-01-19] MEDS ORDERED: Propofol 200 MG/20 ML SDV ONE (06:53)
[2020-01-19] MEDS ORDERED: fentaNYL 250 MCG/5 ML SDV ONE (06:54)
[2020-01-19] MEDS ORDERED: Ondansetron 4 MG/2 ML SDV ONE (06:58)
[2020-01-19] MEDS ORDERED: Glycopyrrolate 0.2 MG/ML SDV ONE (06:58)
[2020-01-19] MEDS ORDERED: Ketorolac 30 MG/ML SDV ONE (06:58)
[2020-01-19] MEDS ORDERED: Lidocaine 2% 5 ML SDV ONE (06:58)
[2020-01-19] MEDS: Lactated Ringers 1,000 ML IV SCH ×3 (07:00→19:28)
[2020-01-19] MEDS ORDERED: Sugammadex Sodium 200 MG/2 ML VIAL ONE (07:00)
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
[2020-01-19 07:28] LABS: BLOOD UREA NITROGEN,BUN 10 mg/dL (7.0-18.0); CARBON DIOXIDE,CO2 24.8 mmol/L (21.0-32.0); CHLORIDE,CL 104 mmol/L (98-107); GLUCOSE RANDOM 88 mg/dL (74-106); POTASSIUM,K 3.7 mmol/L (3.5-5.1); SODIUM,NA 137 mmol/L (136-145)
[2020-01-19] MEDS ORDERED: Acetaminophen 1,000 MG in Premix Bag 1 BAG IV PRN (07:29)
[2020-01-19] MEDS ORDERED: Desflurane 240 ML Bottle ONE (07:38)
[2020-01-19] MEDS ORDERED: Sodium Chloride 0.9% 20 ML ONE (08:18)
[2020-01-19] MEDS ORDERED: ceFAZolin 1 GM Vial ONE (08:18)
[2020-01-19] MEDS ORDERED: Vasopressin 20 Units/1 ML MDV ONE (08:19)
[2020-01-19] MEDS ORDERED: Rocuronium 100 MG/10 ML Syringe ONE (08:35)
[2020-01-19] MEDS ORDERED: HYDROmorphone 2 MG/ML Syringe ONE ×2 (08:40→09:29)
[2020-01-19] MEDS ORDERED: Bupivacaine 0.5% 10 ML SDV ONE (10:37)
[2020-01-19] MEDS ORDERED: Acetaminophen/oxyCODONE 325-5 MG Tab PO PRN (10:56)
[2020-01-19] MEDS ORDERED: Promethazine 25 MG/ML SDV IM PRN (10:56)
[2020-01-19] MEDS ORDERED: Ondansetron 4 MG/2 ML SDV IVPUSH PRN (10:56)
[2020-01-19] MEDS ORDERED: Non-Formulary Medication 1 Each (Omeprazole [Omeprazole] 20 MG) PO PRN (11:01)
--- NOTE | 2020-01-19 11:06 | PCM.OPNOTE ---
- General Post-Op/Procedure Note Date of Surgery/Procedure: 01/19/20 Operative Procedure(s): Abdominal myomectomy Findings: Extensive adhesions of uterus to posterior cul-de-sac, multiple leiomyoma, right ovary and fallopian tube not identified Pre Op Diagnosis: Uterine leiomyoma. Dysmenorrhea. Pelvic, back, and abdominal pain. Heavy menstruation Post-Op Diagnosis: Uterine leiomyoma. Dysmenorrhea. Pelvic, back, and abdominal pain. Heavy menstruation. Pelvic adhesive disease Anesthesia Technique: General ET Tube Primary Surgeon: Dayami Acevedo [facility]: Navarro Guaman Pathology: Uterine leiomyoma x3 (4cm, 4cm, 6cm) Fluid Replacement, Intraop: 2,500 Output, Urine Amount: 200 EBL in mLs: 300 Complications: None Condition: Good Free Text/Narrative:: Tranexamic acid 1g IV preoperative bleeding prophylaxis Ancef 2g IV preooerative prophylaxis Vasopressin 20U in 100cc NS intraoperative Avitene intraoperative Catrachita intraoperative Interceed intraoperative 10cc 0.5% Bupivacaine infiltrated into incision at end of procedure
[2020-01-19] MEDS: fentaNYL 100 MCG/2 ML SDV IVPUSH PRN ×2 (11:25→11:32)
[2020-01-19] MEDS: Morphine 4 MG/ML Syringe IVPUSH PRN ×3 (11:39→21:14)
--- NOTE | 2020-01-19 11:54 | PCM.POSTAN ---
POST ANESTHESIA ASSESSMENT - MENTAL STATUS Mental Status: Alert - VITAL SIGNS Vital Signs: Last Vital Signs Temp 36.4 C 01/19/20 07:24 Pulse 100 01/19/20 11:45 Resp 12 01/19/20 11:45 BP 114/63 01/19/20 11:45 Pulse Ox 100 01/19/20 11:45 - RESPIRATORY Respiratory Status: Respiratory Rate WNL - CARDIOVASCULAR CV Status: Pulse Rate WNL - GASTROINTESTINAL GI Status: No Symptoms - POST OP HYDRATION Hydration Status: Adequate & Stable
[2020-01-19] MEDS: Ketorolac 30 MG/ML SDV IVPUSH SCH ×3 (12:17→23:13)
[2020-01-19] MEDS: Acetaminophen/oxyCODONE 325-5 MG Tab PO PRN ×2 (14:02→20:33)
[2020-01-19] MEDS: Docusate Sodium 100 MG Cap PO SCH (20:33)
--- NOTE | 2020-01-19 22:26 | OR ---
SURGEON: Dayami Acevedo MD DATE OF PROCEDURE: 01/19/2020 PREOPERATIVE DIAGNOSES: 1. 39-year-old with uterine leiomyoma. 2. Pelvic, abdominal, and back pain. 3. Dysmenorrhea. 4. Heavy menses. POSTOPERATIVE DIAGNOSES: 1. 39-year-old with uterine leiomyoma. 2. Pelvic, abdominal, and back pain. 3. Dysmenorrhea. 4. Heavy menses. 5. Extensive adhesive disease in pelvis. PROCEDURE: Abdominal myomectomy and lysis of adhesions. PRIMARY SURGEON: Dayami Acevedo MD. VICE PRESIDENT OF OPERATIONS: Dr. Navarro Guaman. ANESTHESIA: General endotracheal. IV FLUIDS: 2500 mL LR. ESTIMATED BLOOD LOSS: 200 mL. URINE OUTPUT: 200 mL. PREOPERATIVE ANTIBIOTICS: Ancef 2 g IV. BLEEDING PROPHYLAXIS: Tranexamic acid 1 g IV. FINDINGS: Extensive adhesive disease in the pelvis. Enlarged uterus with multiple fibroids. Did not visualize right ovary or fallopian tube. Normal-appearing left ovary with fallopian tube appearing to be adhesed posteriorly. SPECIMEN: Uterine leiomyoma. MEDICATIONS: Avitene, Catrachita, Interceed. 10 mL 0.5% bupivacaine. INDICATIONS: This is a 39-year-old patient, who presented for planned surgery for known uterine leiomyoma. The patient reported significant pelvic, back, and abdominal pain, which has worsened over the past 1 month. She also reports heavy menses and dysmenorrhea. Prior to surgery, all the risks, benefits, and alternatives were reviewed with the patient and she desired to proceed. DESCRIPTION OF PROCEDURE: The patient was taken to the operating room, where general anesthesia was obtained. She was placed in the dorsal lithotomy position with legs in Yellofin stirrups. She was prepared and draped in the normal sterile fashion. A Silveira catheter was placed. Pfannenstiel skin incision was made using the patient's previous scar and carried through to underlying layer of fascia with the Bovie. The fascia was incised in the midline and incision extended laterally with the Bovie. The superior aspect of fascial incision was grasped with Jj clamps, elevated, and underlying rectus muscles dissected off bluntly and with the curved Cerrato scissors. In a similar fashion, the inferior aspect of the fascial incision was grasped with Jj clamps, elevated, and underlying rectus muscles dissected off bluntly and with the Cerrato scissors. The muscles were in the midline using a hemostat for elevation in the Bovie. The peritoneum was, at this time, inadvertently entered. This incision was extended with a combination of manual traction and a layered approach with the Bovie, being careful not to harm bowel or bladder. A large Ronnie retractor was placed. An abdominal survey revealed the above findings. The uterus was adhesed posteriorly to the posterior cul-de-sac and bowel. These adhesions were lysed with a combination of blunt and sharp dissection. Multiple fibroids were noted. The largest fundal/posterior fibroid was grasped with a towel clamp and used to manipulate the uterus. Two 4 cm fibroids were identified on the left side of the uterus. These were infiltrated with vasopressin mixed in normal saline for bleeding control. The Bovie was used to incise the fibroid capsule and the fibroid was shelled out of the myometrium with a combination of blunt and sharp dissection with the Metzenbaum scissors. The bed of the 2 fibroids was closed with running stitch of 2-0 Vicryl suture until hemostasis was obtained. The serosa was closed with a baseball stitch of 2-0 Vicryl suture. At this time, more thorough survey of the uterus and adnexa was undertaken. The patient had previously had a laparotomy for possible endometriosis versus ovarian cyst, but was unsure. The right fallopian tube and ovary were not visualized. The left ovary was visualized and the left fallopian tube appeared to be adhesed posteriorly underneath the ovary; the fimbriated end was not identified. The larger 6 cm fibroid was infiltrated with dilute vasopressin for bleeding control similar to the other fibroids. The capsule was incised with the Bovie, and a combination of blunt and sharp dissection with Metzenbaum scissors was used to shell out the fibroid with complete removal. The myometrial defect was closed with running stitch of 2-0 Vicryl suture. The serosa was closed with a baseball stitch of 2-0 Vicryl suture. [id number] sutures were used to obtain hemostasis in all fibroid serosal bleeding. The left adnexa appeared to be bleeding. [id number] stitches were used here to obtain hemostasis. Avitene was placed in this area for hemostasis. Catrachita was placed throughout the pelvis due to serosal oozing. The pelvis was irrigated and no active arterial bleeding was noted. Next, an Interceed was placed over the uterus in attempt to decrease adhesive disease reformation. The Ronnie retractor was removed. The peritoneum was closed with a running suture of 3-0 Vicryl suture. The fascia was closed with 2 stitches of 0 Vicryl suture remaining in the midline. The skin was closed with 4-0 Monocryl in subcuticular fashion. 10 mL of 0.5% bupivacaine was infiltrated into the incision at this time. All sponge, lap, needle counts were correct x2. The patient was awakened and taken to recovery room in stable condition. [id number] / MODL /[id number] DIONICIO
[2020-01-20] MEDS: Acetaminophen/oxyCODONE 325-5 MG Tab PO PRN ×3 (00:42→15:16)
[2020-01-20] MEDS: Morphine 4 MG/ML Syringe IVPUSH PRN (02:21)
[2020-01-20] MEDS: Lactated Ringers 1,000 ML IV SCH (03:46)
[2020-01-20] MEDS: Ketorolac 30 MG/ML SDV IVPUSH SCH ×2 (05:07→11:46)
[2020-01-20 05:58] LABS: BLOOD UREA NITROGEN,BUN 7 mg/dL (7.0-18.0); CARBON DIOXIDE,CO2 26.7 mmol/L (21.0-32.0); CHLORIDE,CL 103 mmol/L (98-107); GLUCOSE RANDOM 108 mg/dL (74-106); POTASSIUM,K 3.6 mmol/L (3.5-5.1); SODIUM,NA 137 mmol/L (136-145)
--- NOTE | 2020-01-20 07:14 | PCM48HPAN ---
Post Anesthesia Note - EVALUATION WITHIN 48HRS OF ANESTHETIC Vital Signs in Normal Range: Yes Patient Participated in Evaluation: Yes Respiratory Function Stable: Yes Airway Patent: Yes Cardiovascular Function Stable: Yes Hydration Status Stable: Yes Pain Control Satisfactory: Yes Nausea and Vomiting Control Satisfactory: Yes Mental Status Recovered: Yes Vital Signs: Last Vital Signs Temp 98.2 F 01/20/20 04:00 Pulse 86 01/20/20 04:00 Resp 18 01/20/20 04:00 BP 93/51 L 01/20/20 04:00 Pulse Ox 99 01/20/20 04:00
[2020-01-20] MEDS: Docusate Sodium 100 MG Cap PO SCH (08:16)
--- NOTE | 2020-01-20 08:32 | PCM.PN ---
- General Info Date of Service: 01/20/20 Functional Status: Reports: Pain Controlled, Tolerating Diet, Ambulating, Urinating - Review of Systems General: Reports: No Symptoms HEENT: Reports: No Symptoms Pulmonary: Reports: No Symptoms Cardiovascular: Reports: No Symptoms Gastrointestinal: Reports: No Symptoms Genitourinary: Reports: No Symptoms Musculoskeletal: Reports: No Symptoms Skin: Reports: No Symptoms Neurological: Reports: No Symptoms Psychiatric: Reports: No Symptoms - Patient Data Vitals - Most Recent: Last Vital Signs Temp 36.6 C 01/20/20 08:23 Pulse 74 01/20/20 08:23 Resp 16 01/20/20 08:23 BP 99/54 L 01/20/20 08:23 Pulse Ox 100 01/20/20 08:23 Weight - Most Recent: 64.41 kg I&O - Last 24 Hours: Intake & Output 01/19/20 01/20/20 01/20/20 22:59 06:59 14:59 Intake Total 200 1939 Output Total 1000 1400 Balance -800 539 Lab Results Last 24 Hours: Laboratory Results - last 24 hr 01/20/20 01/20/20 Range/Units 04:42 04:42 WBC 6.97 (4.0-11.0) K/uL RBC 3.69 L (4.30-5.90) M/uL Hgb 9.9 L (12.0-16.0) g/dL Hct 30.4 L (36.0-46.0) % MCV 82.4 (80.0-98.0) fL MCH 26.8 L (27.0-32.0) pg MCHC 32.6 (31.0-37.0) g/dL RDW Std Deviation 39.1 (28.0-62.0) fl RDW Coeff of Naresh 13 (11.0-15.0) % Plt Count 222 (150-400) K/uL MPV 11.20 (7.40-12.00) fL Neut % (Auto) 71.2 (48.0-80.0) % Lymph % (Auto) 18.1 (16.0-40.0) % Haakon % (Auto) 9.6 (0.0-15.0) % Eos % (Auto) 1.0 (0.0-7.0) % Baso % (Auto) 0.1 (0.0-1.5) % Neut # (Auto) 5.0 (1.4-5.7) K/uL Lymph # (Auto) 1.3 (0.6-2.4) K/uL Haakon # (Auto) 0.7 (0.0-0.8) K/uL Eos # (Auto) 0.1 (0.0-0.7) K/uL Baso # (Auto) 0.0 (0.0-0.1) K/uL Nucleated RBC % 0.0 /100WBC Nucleated RBCs # 0 K/uL Sodium 137 (136-145) mmol/L Potassium 3.6 (3.5-5.1) mmol/L Chloride 103 (98-107) mmol/L Carbon Dioxide 26.7 (21.0-32.0) mmol/L BUN 7 (7.0-18.0) mg/dL Creatinine 0.8 (0.6-1.0) mg/dL Est Cr Clr Drug Dosing 88.38 mL/min Estimated GFR (MDRD) > 60.0 ml/min Glucose 108 H (74-106) mg/dL Calcium 8.6 (8.5-10.1) mg/dL Med Orders - Current: Current Medications Docusate Sodium (Colace) 100 mg PO BID [facility] Last Admin: 01/20/20 08:16 Dose: 100 mg Ibuprofen (Motrin) 800 mg PO Q8H PRN PRN Reason: Pain (mild 1-3) Ketorolac Tromethamine (Toradol) 30 mg IVPUSH Q6H [facility] Stop: 01/20/20 12:00 Last Admin: 01/20/20 05:07 Dose: 30 mg Morphine Sulfate (Morphine) 4 mg IVPUSH Q2H PRN PRN Reason: Pain (severe 7-10) Last Admin: 01/20/20 02:21 Dose: 4 mg Non-Formulary Medication (Omeprazole [Omeprazole]) 20 mg PO DAILY PRN PRN Reason: Heartburn Ondansetron HCl (Zofran) 4 mg IVPUSH Q6H PRN PRN Reason: Nausea/Vomiting Oxycodone/Acetaminophen (Percocet 325-5 Mg) 1 tab PO Q4H PRN PRN Reason: Pain (moderate 4-6) Oxycodone/Acetaminophen (Percocet 325-5 Mg) 2 tab PO Q4H PRN PRN Reason: Pain (moderate 4-6) Last Admin: 01/20/20 08:16 Dose: 2 tab Promethazine HCl (Phenergan) 25 mg IM Q6H PRN PRN Reason: Nausea/Vomiting Discontinued Medications Bupivacaine HCl (Sensorcaine-Mpf 0.5%) Confirm Administered Dose 10 ml .ROUTE .STK-MED ONE Stop: 01/19/20 10:38 Cefazolin Sodium (Ancef) Confirm Administered Dose 2 gm .ROUTE .STK-MED ONE Stop: 01/19/20 08:19 Desflurane (Suprane) Confirm Administered Dose 480 ml .ROUTE .STK-MED ONE Stop: 01/19/20 07:39 Fentanyl (Sublimaze) Confirm Administered Dose 250 mcg .ROUTE .STK-MED ONE Stop: 01/19/20 06:55 Fentanyl (Sublimaze) 50 mcg IVPUSH Q5M PRN PRN Reason: Pain Last Admin: 01/19/20 11:32 Dose: 50 mcg Glycopyrrolate (Robinul) Confirm Administered Dose 0.2 mg .ROUTE .STK-MED ONE Stop: 01/19/20 06:59 Hydromorphone HCl (Dilaudid) Confirm Administered Dose 2 mg .ROUTE .STK-MED ONE Stop: 01/19/20 08:41 Hydromorphone HCl (Dilaudid) Confirm Administered Dose 2 mg .ROUTE .STK-MED ONE Stop: 01/19/20 09:30 Lactated Ringer's (Ringers, Lactated) 1,000 mls @ 125 mls/hr IV ASDIRECTED SARA Last Admin: 01/20/20 03:46 Dose: 125 mls/hr Acetaminophen 1,000 mg/ Premix 100 mls @ 400 mls/hr IV ONETIME PRN PRN Reason: Pain Last Admin: 01/19/20 11:17 Dose: 400 mls/hr Sodium Chloride (Normal Saline) Confirm Administered Dose 20 mls @ as directed .ROUTE .STK-MED ONE Stop: 01/19/20 08:19 Acetaminophen (Ofirmev) Confirm Administered Dose 100 mls @ as directed .ROUTE .STK-MED ONE Stop: 01/19/20 11:15 Ketorolac Tromethamine (Toradol) Confirm Administered Dose 30 mg .ROUTE .STK- MED ONE Stop: 01/19/20 06:59 Lidocaine (Xylocaine-Mpf 2%) Confirm Administered Dose 5 ml .ROUTE .STK-MED ONE Stop: 01/19/20 06:59 Midazolam HCl (Versed 1 Mg/Ml) Confirm Administered Dose 2 mg .ROUTE .STK-MED ONE Stop: 01/19/20 06:54 Ondansetron HCl (Zofran) Confirm Administered Dose 4 mg .ROUTE .STK-MED ONE Stop: 01/19/20 06:59 Propofol (Diprivan 20 Ml) Confirm Administered Dose 200 mg .ROUTE .STK-MED ONE Stop: 01/19/20 06:54 Rocuronium [place] (Zemuron) Confirm Administered Dose 100 mg .ROUTE .STK-MED ONE Stop: 01/19/20 08:36 Sugammadex Sodium (Bridion) Confirm Administered Dose 200 mg .ROUTE .STK-MED ONE Stop: 01/19/20 07:01 Tranexamic Acid (Cyklokapron) Confirm Administered Dose 1,000 mg .ROUTE .STK- MED ONE Stop: 01/19/20 08:20 Vasopressin (Vasopressin) Confirm Administered Dose 20 units .ROUTE .STK-MED ONE Stop: 01/19/20 08:20 - Exam General: Alert, Oriented Neck: Supple Lungs: Normal Respiratory Effort GI/Abdominal Exam: Soft, No Distention, Tender (appropriate tenderness to palpation) Extremities: Non-Tender, No Pedal Edema Skin: Warm, Dry, Intact Wound/Incisions: Dressing Dry and Intact Neurological: No New Focal Deficit Psy/Mental Status: Alert, Normal Affect, Normal Mood Sepsis Event Note - Evaluation Sepsis Screening Result: No Definite Risk - Focused Exam Vital Signs: Vital Signs Temp Pulse Resp BP Pulse Ox 01/20/20 08:23 36.6 C 74 16 99/54 L 100 01/20/20 04:00 36.8 C 86 18 93/51 L 99 01/20/20 00:00 36.6 C 95 16 109/68 98 Date Exam was Performed: 01/20/20 Time Exam was Performed: 08:31 - Problem List & Annotations (1) Uterine leiomyoma SNOMED Code(s): 44641035 Code(s): D25.9 - LEIOMYOMA OF UTERUS, UNSPECIFIED Status: Acute Current Visit: Yes - Problem List Review Problem List Initiated/Reviewed/Updated: Yes - My Orders Last 24 Hours: My Active Orders 01/19/20 10:56 Patient Status [ADT] Routine Notify Provider Intake and Out [RC] ASDIRECTED Notify Provider Vital Signs [RC] ASDIRECTED Oxygen Therapy [RC] ASDIRECTED RT Incentive Spirometry [RC] Q2HWA Up With Assistance [RC] PER UNIT ROUTINE Up ad Yolanda [RC] PER UNIT ROUTINE Urinary Catheter Removal [RC] Per Unit Routine Vital Signs [RC] PER UNIT ROUTINE Acetaminophen/oxyCODONE [Percocet 325-5 MG] 1 tab PO Q4H PRN Acetaminophen/oxyCODONE [Percocet 325-5 MG] 2 tab PO Q4H PRN Morphine 4 mg IVPUSH Q2H PRN Ondansetron [Zofran] 4 mg IVPUSH Q6H PRN Promethazine [Phenergan] 25 mg IM Q6H PRN Peripheral IV Discontinue [OM.PC] Routine Sequential Compression Device [OM.PC] Per Unit Routine Resuscitation Status Routine 01/19/20 10:57 Antiembolic Devices [RC] PER UNIT ROUTINE Intake and Output [RC] PER UNIT ROUTINE 01/19/20 10:58 Pulse Oximetry [RC] PER UNIT ROUTINE Abdominal Binder [OM.PC] Per Unit Routine 01/19/20 11:00 Ketorolac [Toradol] 30 mg IVPUSH Q6H 01/19/20 11:01 Omeprazole [Omeprazole] 20 mg PO DAILY PRN 01/19/20 21:00 Docusate Sodium [Colace] 100 mg PO BID 01/19/20 Lunch Regular Diet [DIET] 01/20/20 08:30 Ready for Discharge [RC] PER UNIT ROUTINE 01/20/20 10:59 Ibuprofen [Motrin] 800 mg PO Q8H PRN - Assessment Assessment:: 39yo s/p abdominal myomectomy and lysis of adhesions, POD#1 - Plan Plan:: Discharge home today. Patient meeting all postoperative milestones. Reviewed discharge instructions.
[2020-01-20] MEDS ORDERED: Ibuprofen 800 MG Tab PO PRN (10:59)
== END 2020-01-20 16:00 | disposition home or self-care (01) ==
LOC: MW.SDS 06:37 → MW.MS 11:31
PROVIDERS: ADMIT Obstetrics & Gynecology; ATTEND Obstetrics & Gynecology
DX: D25.9 Leiomyoma of uterus, unspecified (principal); K21.9 Gastro-esophageal reflux disease without esophagitis; Z79.899 Other long term (current) drug therapy
CPT/HCPCS: 36415; 58140; 80048; 84703; 85025; 86850; 86900; 86901; 88307; A9270; C1765; J0131; J0690; J1170; J1885; J2001; J2250; J2270; J2405; J2704; J3010; J3490; J7120; 00840